=== PATIENT | female | born 1990 | race Caucasian/White ===

== ENCOUNTER 2018-05-13 17:25 | Emergency (ER) | payer OTHER, SELFPAY ==
[2018-05-13] MEDS ORDERED: diphenhydrAMINE INJ 50MG/ML VIAL (J1200) IV STA (17:33)
[2018-05-13] MEDS ORDERED: LEXA1TAB PO (17:38)
[2018-05-13] MEDS ORDERED: EPINEPHrine INJ 1 MG/ML 1ML AMP IM STA (17:41)
[2018-05-13] MEDS ORDERED: NS 1,000 ML IV ONE (17:45)
[2018-05-13] MEDS ORDERED: methylPREDNISolone INJ 125 MG/2 ML VIAL (J2930) IV ONE (17:45)
[2018-05-13] MEDS ORDERED: IPRATROPIUM 0.5MG/ALBUTEROL 2.5MG INH SOL UD 3ML (DUONEB)(J7620) NEB ONE (17:45)
[2018-05-13] MEDS ORDERED: FAMOTIDINE IV BAG 20 MG in APPROPRIATE DILUENT 1 EA IV ONE (17:45)
[2018-05-13 18:33] VITALS: O2SAT 99
[2018-05-13 19:30] VITALS: BP 101/62
[2018-05-13] MEDS ORDERED: MEDR4TAB PO (19:30)
[2018-05-13] MEDS ORDERED: ALLE180T33 PO (19:30)
[2018-05-13] MEDS ORDERED: EPIP0.3I2 IM (19:30)
[2018-05-13] MEDS ORDERED: FAMO20TA PO (19:30)
== END 2018-05-13 19:52 | disposition home or self-care (01) ==
LOC: M ED 17:25
DX: T61.91XA Toxic effect of unspecified seafood, accidental (unintentional), initial encounter (principal); T78.3XXA Angioneurotic edema, initial encounter; Y92.9 Unspecified place or not applicable; Y93.9 Activity, unspecified; Z79.899 Other long term (current) drug therapy; Z88.8 Allergy status to other drugs, medicaments and biological substances; Z91.010 Allergy to peanuts; Z91.013 Allergy to seafood
CPT/HCPCS: 94640; 96372; 96374; 96375; 99284; J1200; J2930